=== PATIENT | male | born 1930 | race Caucasian/White ===

== ENCOUNTER 2016-09-19 13:03 | Emergency (ER) | payer OTHER, MEDICARE ==
[2016-09-19 13:11] VITALS: BP 176/82
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
[2016-09-19] MEDS ORDERED: JALYN 0.5-0.41 EACH PO (13:48)
[2016-09-19] MEDS ORDERED: ASPIRIN EC81 M1 PO (13:49)
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
[2016-09-19] MEDS ORDERED: PERCOCET 5-3251 EACH PO (15:23)
== END 2016-09-19 15:21 ==
LOC: ERH 13:03
DX: S29.011A Strain of muscle and tendon of front wall of thorax, initial encounter (principal); V89.2XXA Person injured in unspecified motor-vehicle accident, traffic, initial encounter
CPT/HCPCS: J1885